=== PATIENT | male | born 1995 | race Two or more races ===

== ENCOUNTER 2021-11-11 23:08 | Emergency (ER) | payer OTHER ==
[~2021-11-11] VITALS: Ht 167.6 cm; Wt 90.7 kg
== END 2021-11-12 03:01 | disposition home or self-care (01) ==
LOC: ER 23:08
DX: E03.9 Hypothyroidism, unspecified (principal); R53.1 Weakness; Z20.828 Contact with and (suspected) exposure to other viral communicable diseases